=== PATIENT | female | born 1985 | race African-American/Black ===

== ENCOUNTER 2022-03-14 05:25 | Emergency (ER) | payer OTHER, SELFPAY ==
[2022-03-14] MEDS ORDERED: Bacitracin 1 PK ONE (05:39)
[2022-03-14] MEDS ORDERED: Boostrix 0.5 ML (Tdap) VIAL (>/=7 yrs of age) ONE (05:39)
== END 2022-03-14 05:57 | disposition home or self-care (01) ==
LOC: CSHERS 05:25
DX: S61.012A Laceration without foreign body of left thumb without damage to nail, initial encounter (principal); Z23 Encounter for immunization; W27.2XXA Contact with scissors, initial encounter
CPT/HCPCS: 90471; 90715